=== PATIENT | male | born 1975 | race Caucasian/White ===

== ENCOUNTER 2018-06-24 08:25 | Inpatient (IN) | payer OTHER ==
[2018-06-24] VITALS (17 sets, daily range): BP systolic 123–148; BP diastolic 74–101
[~2018-06-24] VITALS: Ht 152.4 cm; Wt 91.8 kg
--- NOTE | ~2018-06-24 | CON ---
[address] [address] CONSULTATION Name: DELMISCHRISTINE WEBER Room: [address] Giancarlo Garcia#: [id number] Admission: 06/24/18 Attend Phys: Ishmael Jean Baptiste MD Discharge: Date of : 73 Report #: [id number] THIS REPORT FOR: //name// CC: Ishmael Jean Baptiste [facility] physician/PCP Aidan Jara DATE OF SERVICE: 06/24/2018 HISTORY OF PRESENT ILLNESS: The patient is a very pleasant 42-year-old male with aggressive and premature coronary artery disease, approximately 6 or 7 years status post multivessel stenting in [facility]. For the last several days, he has noted exertional chest heaviness or pressure, which remits with cessation of activity. He has also had nocturnal discomfort of similar nature for the preceding 3 nights remitting after he got up and walked around. He has not utilized nitrates. This is similar to pain associated with prior ischemic syndromes. He has underlying hypertension and hypercholesterolemia. He has not been particularly compliant with medications, but did resume his pravastatin at 20 mg and lisinopril at 5 mg daily. He also has a significant cigarette smoking history, estimated at 1 pack per day. He denies a family history of premature coronary disease, renal insufficiency, peripheral vascular disease or diabetes. PAST MEDICAL HISTORY: Remarkable for hypertension, hypercholesterolemia, coronary artery disease. SOCIAL HISTORY: The patient smokes approximately a pack per day and has for several years. He is . REVIEW OF SYSTEMS: Remarkable for the following, notes some mild weight excess. MUSCULOSKELETAL: There are mild chronic arthritic complaints. PHYSICAL EXAMINATION: GENERAL: Demonstrates a young adult male who is modestly overweight. VITAL SIGNS: Blood pressure is 130/70, pulse rate is 64, respirations are 18 per minute. NECK: Jugular venous pressure is normal with carotids being 1-2+. CHEST: Clear. CARDIAC: Reveals normal first and second heart sounds without rubs, [place] [address] CONSULTATION Name: CHRISTINE BENITES Room: [address] M.R.#: [id number] Admission: 06/24/18 Attend Phys: Ishmael Jean Baptiste MD Discharge: Date of : 73 Report #: [id number] ABDOMEN: Modestly obese and nontender. EXTREMITIES: Without edema with intact femoral, pedal and radial pulses. Electrocardiogram demonstrates sinus rhythm with no ischemic ST-T alterations. Troponin is elevated at 2.3. Renal function parameters are normal as are electrolytes, hemoglobin, hematocrit and white blood cell count as well as platelets. Coagulation times are within normal limits. IMPRESSION: 1. Chest pain following a pattern most compatible with unstable angina. 2. Coronary artery disease, status post prior multivessel intervention. 3. Hypertension. 4. Hypercholesterolemia. 5. Mild weight excess. RECOMMENDATIONS: Given the aforementioned clinical scenario, I would recommend heparinization, antiplatelet therapy and urgent catheterization. This has been discussed with the patient and family. Critical care time is 30 minutes from 09:00-09:30 on 06/24/2018. By: 0931 0113Aidan Jara MD, FACC /nt
[~2018-06-24 08:25] MED LIST: CLONAZEPAM 0.50.5 M1 PO
[2018-06-24] MEDS ORDERED: LISINOPRIL5 MG PO (08:35)
[2018-06-24] MEDS ORDERED: PRAVACHOL20 MG PO (08:35)
[2018-06-24 08:49] LABS: ABSOLUTE BASOPHILS 0.1 thou/uL (0.0-0.2); ABSOLUTE EOSINOPHILS 0.1 thou/uL (0.0-0.7); ABSOLUTE LYMPHOCYTES 1.7 thou/uL (0.8-5.3); ABSOLUTE MONOCYTES 0.6 thou/uL (0.0-1.2); ABSOLUTE NEUTROPHILS 4.9 thou/uL (1.6-8.1); BASOPHILS 0.8 %; EOSINOPHILS 1.9 %; HEMATOCRIT 47.7 % (42.0-52.0); HEMOGLOBIN 16.7 gm/dL (14.0-18.0); LYMPHOCYTES 23.4 %; MCH 33.1 pg (26.0-34.0); MCHC 35.1 g/dL (28.0-37.0); MCV 94.2 fL (80.0-100.0); MONOCYTES 7.6 %; MPV 9.1 fl. (7.2-11.1); NUCLEATED RBCS 0 /100WBC; PLATELET COUNT* 204 thou/uL (150-400); POLYS 66.3 %; RBC 5.06 mil/uL (4.50-6.00); RDW-CV 13.8 % (10.5-14.5); WBC 7.4 thou/uL (4.0-11.0)
[2018-06-24 08:59] LABS: INR 1.1; PROTIME 10.9 Seconds (9.20-11.50)
[2018-06-24 09:09] LABS: CALCIUM 9.3 mg/dL (8.5-10.1); CREATININE 0.8 mg/dL (0.6-1.3); POTASSIUM 4.1 mmol/L (3.5-5.1); TROPONIN-I LEVEL 2.3 ng/mL (<0.06)
[2018-06-24 09:10] LABS: ALBUMIN 3.7 g/dL (3.4-5.0); TOTAL PROTEIN 8.3 g/dL (6.4-8.2)
--- NOTE | 2018-06-24 10:11 | NUR ---
HEPARIN BOLUS AND DRIP STARTED WITH ALLISON RN, TELLY RN, JAZZ Ruby RN. WHEN ATTEMPTING TO SCAN PATIENT TO ADMINISTER MEDICATIONS, SCAN RESULTED ERROR "UNNECESSARY TO SCAN PATIENT". DOUBLE CHECKED ERROR WITH PHARMACY, AND GAME SHOW HOST. MEDICATIONS ADMINISTERED WITH 3 RNS.
--- NOTE | 2018-06-24 11:04 | NUR ---
REBECCA NOTIFIED UPON PT RETURN FROM CT. PT CONNECTED TO BP AND PULSE OX AND O2 HE WAS PRIOR TO GOING TO CT
[2018-06-24 13:04] LABS: CHOLESTEROL 382 mg/dL (<200); HDL CHOLESTEROL 66 mg/dL (>40); LDL CHOLESTEROL 292 mg/dL (<100); TC:HDL 5.8 Ratio (Not establshd); TRIGLYCERIDE 120 mg/dL (<150); VLDL 24 mg/dL (<40)
[2018-06-24 13:05] LABS: SERUM ASSESSMENT Clear
--- NOTE | 2018-06-24 16:38 | CARD ---
[address] [address] CARDIAC CATH REPORT Name: CHRISTINE BENITES Room: [address] M.R.#: [id number] Admission: 06/24/18 Attend Phys: Ishmael Jean Baptiste MD Discharge: Date of : 73 Report #: [id number] THIS REPORT FOR: //name// APPROVED REPORT Study performed: 06/24/2018 13:13:01 Patient Details Patient Status: Observation Room #: The patient is a 42 year-old male Event Personnel Aidan Jara Third Steel Pourer, Amy Colvin RN Cabinetmaker Apprentice, Kiet CarrenoIS Monitor, Brigido Vega (R) Scrub Procedures Performed Left Heart Cath w/or w/o Coronaries [id number] [facility] ANNALEE Place w/wo Plasty Single LAD [id number] ANNALEE Place w/wo Plasty Addl BR OM 1 C9601 DESADDL , Right transradial approach Indication Non-STEMI Risk Factors Family History, Hypercholesterolemia, Tobacco History () Admission/Lab Medications/Medications given during procedure Fentanyl IV 50 mcg, Midazolam (Versed) IV 2 mg, Lidocaine Subcut 15 ml, Midazolam (Versed) IV 1 mg, Nitroglycerin IC 200 mcg, Angiomax IV 13.5 mg per kg, Angiomax Drip IV 32.1 ml per hr Procedure Narrative The patient was brought electively to the Cardiac Catheterization Laboratory and was prepped and draped in a sterile manner. The right femoral was infiltrated with 2% Lidocaine subcutaneous anesthesia. A [place] 6fr sheath was inserted into the . Coronary angiography was performed using coronary diagnostic catheters. The right coronary system was accessed and visualized with a JR4 catheter. The left coronary system was accessed and visualized with a JL4 catheter. The left ventricle was accessed and visualized with a Straight PIG catheter. Left ventricular/Aortic Valve gradient assessed via catheter pullback. Left ventriculogram was performed in [place] projection. Pre-demployment femoral angiogram was performed . Closure device was deployed with a Fr Angioseal STS 6[place] [address] CARDIAC CATH REPORT Name: CHRISTINE BENITES Room: [address]#: [id number] Admission: 06/24/18 Attend Phys: Ishmael Jean Baptiste MD Discharge: Date of : 73 Report #: [id number] tolerated the procedure well and there were no complications associated with the procedure. There was no hematoma. Intraoperative Conscious Sedation Fentanyl 75 mcg Dose: 2850 mGy Contrast Type and Amount: Visipaque 580 ml Coronary Angiography The patient's coronary anatomy is co- dominant. Diagnostic Cath Left Main 0% narrowing LAD 40% tubular proximal narrowing and 90% mid vessel stenosis Circumflex 40% proximal narrowing with 60% distal narrowing; there was 90% stenosis of the proximal portion of the first marginal branch of the circumflex Right Coronary Modest size codominant vessel which is totally occluded proximally with recanalization and collateral filling from a conus branch of a skeleton of the distal right coronary artery Left Ventriculography The left ventricle is normal in size with contractility. The left ventricular ejection fraction is estimated to be 45%. Left ventricular wall motion abnormalities are present. There is mild anterior and moderate mid inferior hypokinesis Hemodynamics The aortic pressure is 128/56 mmHg with a mean of 81 mmHg. The left ventricular pressure is 131/7 mmHg with a mean of mmHg. The left ventricular end diastolic pressure is 23 mmHg. There was no gradient across the aortic valve upon pullback. PCI Technique Lesion Anticoagulation was achieved with Angiomax. Patient was preloaded with Angiomax IV 13.5 mg per kg. Percutaneous coronary intervention was performed on the mid left anterior descending artery segment. The lesion stenosis prior to intervention was 90% with MARYELLEN 3 flow. A 6FR XB 3.0 100CM Guide Catheter was used to engage the ostium. A IG: BMW 190cm Interventional Guidewire was used to cross the lesion. BALLOON DILATION A Balloon catheter Trek RX 2.5 X 12 was inserted and inflated up to 10.00atm [place] 7[place]. [place] [address] CARDIAC CATH REPORT Name: CHRISTINE BENITES Room: [address] M.R.#: [id number] Admission: 06/24/18 Attend Phys: Ishmael Jean Baptiste MD Discharge: Date of : 73 Report #: [id number] STENT DEPLOYMENT A stent Mark RX Stent 2.5X12mm was inserted and inflated up to 12.00atm for 8seconds. POST STENT DEPLOYMENT BALLOON DILATION A Balloon catheter NC Trek RX 2.0 X 12 was inserted and inflated up to 12.00atm for 8seconds. Final angiography reveals 0 % stenosis with MARYELLEN 3 flow. PCI Technique Lesion 2 Percutaneous Coronary Intervention was performed on the first obtuse marginal branch segment. The lesion stenosis prior to intervention was 90% with MARYELLEN 3 flow. Balloon Dilation A Balloon catheter NC Trek RX 2.0 X 12 was inserted and inflated up to 16atm for 15seconds. Stent Deployment A stent Mark RX Stent 2.0X15mm was inserted and inflated up to 20.00atm for 10seconds. Final angiography reveals 0 % stenosis with MARYELLEN 3 flow. Conclusion #1 severe multivessel coronary artery disease characterized by the following: A 40% proximal LAD narrowing with 90% mid vessel stenosis B nondominant circumflex with 40% proximal narrowing and and 60% distal narrowing with 90% stenosis within a previously deployed stent in the first marginal branch C modest size codominant right coronary artery which is totally occluded proximally with recanalization and conus filling of a skeleton of the distal right coronary artery #2 modest reduction in global left ventricular systolic function estimated ejection fraction of 45% with mild anterior and moderate inferior hypokinesis #3 moderate elevation of left ventricular [place] [address] CARDIAC CATH REPORT Name: CHRISTINE BENITES Room: [address] Giancarlo Garcia#: [id number] Admission: 06/24/18 Attend Phys: Ishmael Jean Baptiste MD Discharge: Date of : 73 Report #: [id number] rest #4 successful percutaneous coronary intervention with deployment drug-eluting stents at the sites of 90% mid LAD and 90% first marginal stenosis with 0% residual narrowing at both sites following stent deployment Recommendations Cardiac Risk Reduction Program Aggressive Medical Therapy Medications Administered Aspirin (any) Prasugrel Diagnostic Cath Approved by: Aidan Jara MD Date/Time: 06/24/2018 16:35:38 <ELECTRONICALLY SIGNED> By: Aidan Jara MD, [facility] 06/24/18 1637 1637 1637Aidan Jara MD, FAC /INF
--- NOTE | 2018-06-24 19:04 | NUR ---
post cath vs documented. pt started bleeding from the r groin. but pt r groin is now intact. ivf infusing.
--- NOTE | 2018-06-24 19:24 | NUR ---
THIS NURSE WALKED INTO THE PATIENT'S ROOM. PT BLEEDING FROM R GROIN. DRESING SATURATED.DRESSING WAS CHANGED BY THIS NURSE PRIOR TO LEAVING. DRESSING LOOKING INTACT NOW.REPORT GIVEN TO INSTRUMENT AND CONTROL SERVICE PERSON NURSE
[2018-06-25 00:22] VITALS: BP 110/71
[2018-06-25 04:17] VITALS: BP 99/75
[2018-06-25 05:00] LABS: HEMATOCRIT 43.4 % (42.0-52.0); MCH 32.4 pg (26.0-34.0); MCHC 33.8 g/dL (28.0-37.0); MCV 95.7 fL (80.0-100.0); MPV 9.3 fl. (7.2-11.1); RBC 4.54 mil/uL (4.50-6.00); RDW-CV 13.9 % (10.5-14.5); WBC 8.1 thou/uL (4.0-11.0)
--- NOTE | 2018-06-25 05:12 | NUR ---
ASSUMED PT CARE AT 1930. NURSING ASSESSMENT COMPLETED AT START OF SHIFT. SR ON PALLIATIVE CARE COORDINATOR.AT 2029, RIGHT GROIN DRESSING SATURATED WITH SEROSANGUINEOUS DRAINAGE FROM CATH SITE. DRESSING CHANGED, APPLIED PRESSURE TO SITE FOR 10 MINUTES. RECHECKED DRESSING THROUGHOUT SHIFT, DRESSING CDI AT THIS TIME. HOURLY ROUNDING COMPLETED. CALL LIGHT WITHIN REACH. VOICED NO CONCERNS THIS SHIFT.
[2018-06-25 05:25] LABS: CALCIUM 8.5 mg/dL (8.5-10.1); CREATININE 0.9 mg/dL (0.6-1.3); MAGNESIUM 1.8 mg/dL (1.8-2.4); POTASSIUM 4.1 mmol/L (3.5-5.1); TOTAL BILIRUBIN 0.8 mg/dL (<0.1-1.0)
[2018-06-25 05:36] LABS: HEMOGLOBIN 14.7 gm/dL (14.0-18.0)
[2018-06-25 06:05] LABS: TROPONIN-I LEVEL 5.96 ng/mL (<0.06)
[2018-06-25 08:00] VITALS: BP 112/75
--- NOTE | 2018-06-25 10:43 | NUR ---
assumed pt care report received from nurse. pt is aox4 sr on youth nutritional monitor. pt vs are within normal limits. morning meds given as ordered. pt awaiting for discharge. r groin site looks intact. will await for dr mckinney
[2018-06-25] MEDS ORDERED: EFFIENT10 MG PO (11:07)
[2018-06-25] MEDS ORDERED: ASPIR 8181 MG PO (11:07)
[2018-06-25] MEDS ORDERED: ATORVASTATIN CA40 MG PO (11:08)
[2018-06-25 11:27] VITALS: BP 141/99
[2018-06-25 11:34] VITALS: BP 141/99
[2018-06-25] MEDS ORDERED: NITROGLYCERIN0.4 MG SUBLING (11:42)
[2018-06-25 12:05] VITALS: BP 141/99
--- NOTE | 2018-06-25 12:05 | NUR ---
PT LEFT FLOOR AT 1200 ACOMPANIED BY NURSING STAFF AND FAMILY. DISCHARGE INSTRUCTIONS GIVEN.
--- NOTE | 2018-06-25 12:28 | EKG ---
[place] [address] ELECTROCARDIOGRAM REPORT Name: CHRISTINE BENITES Room: [address] IN M.R.#: [id number] Admission: 06/25/18 Attend Phys: Ishmael Jean Baptiste MD Discharge: 06/25/18 Date of : 73 Report #: [id number] THIS REPORT FOR: //name// [facility] ED Test Date: 2018-06-24 Test Time: 08:31:18 Pat Name: CHRISTINE BENITES Department: Room: [facility] Gender: M Case Management Rn: Alannah : 1975 Requested By: Jayce Clarke Order Number: [id number] MD: Lars Wilson Measurements Intervals [place] Rate: 97 P: 50 SC: 133 QRS: 53 QRSD: 98 T: 53 QT: 332 QTc: 422 Interpretive Statements Sinus rhythm No previous ECG available for comparison Electronically Signed On 06-25-2018 12:28:29 CDT by Lars Wilson [email or web address] <ELECTRONICALLY SIGNED> By: Lars Wilson MD, [facility] 06/25/18 1228 0 0 Lars Wilson MD, [facility] /EPI
--- NOTE | 2018-06-25 12:30 | EKG ---
[place] [address] ELECTROCARDIOGRAM REPORT Name: CHRISTINE BENITES Room: [address] IN M.R.#: [id number] Admission: 06/25/18 Attend Phys: Ishmael Jean Baptiste MD Discharge: 06/25/18 Date of : 73 Report #: [id number] THIS REPORT FOR: //name// [facility] Test Date: 2018-06-24 Test Time: 15:18:01 Pat Name: CHRISTINE BENITES Department: Room: [facility] Gender: M Center Sales And Service Associate: : 1975 Requested By: Aidan Jara Order Number: [id number] Clayton MD: Lars Wilson Measurements Intervals [place] Rate: 75 P: -4 IA: 118 QRS: 74 QRSD: 109 T: 63 QT: 368 QTc: 411 Interpretive Statements Sinus rhythm Borderline short IA interval Baseline wander in lead(s) V2 No previous ECG available for comparison Electronically Signed On 06-25-2018 12:30:16 CDT by Lars Wilson [email or web address] <ELECTRONICALLY SIGNED> By: Lars Wilson MD, FAC 06/25/18 1230 1518 1518 Lars Wilson MD, [facility] /EPI
--- NOTE | 2018-06-25 12:31 | EKG ---
[place] [address] ELECTROCARDIOGRAM REPORT Name: CHRISTINE BENITES Room: [address] [place] IN M.R.#: [id number] Admission: 06/25/18 Attend Phys: Ishmael Jean Baptiste MD Discharge: 06/25/18 Date of : 73 Report #: [id number] THIS REPORT FOR: //name// [facility] Test Date: 2018-06-24 Test Time: 17:35:59 Pat Name: CHRISTINE BENITES Department: Room: [address] Gender: M [employer] Consultant: : 1975 Requested By: Aidan Jara Order Number: [id number] Clayton MD: Lars Wilson Measurements Intervals [place] Rate: 91 P: 55 [place]: 150 QRS: 80 QRSD: 108 T: 54 QT: 356 QTc: 439 Interpretive Statements Sinus rhythm Probable left atrial enlargement Abnormal inferior Q waves Baseline wander in lead(s) II No previous ECG available for comparison Electronically Signed On 06-25-2018 12:31:20 CDT by Lars Wilson [email or web address] <ELECTRONICALLY SIGNED> By: Lars Wilson MD, FAC 06/25/18 1231 1735 1735 Lars Wilson MD, [facility] /EPI
--- NOTE | 2018-06-25 12:32 | EKG ---
[place] [address] ELECTROCARDIOGRAM REPORT Name: CHRISTINE BENITES Room: [address] IN M.R.#: [id number] Admission: 06/25/18 Attend Phys: Ishmael Jean Baptiste MD Discharge: 06/25/18 Date of : 73 Report #: [id number] THIS REPORT FOR: //name// [facility] Test Date: 2018-06-25 Test Time: 06:16:24 Pat Name: CHRISTINE BENITES Department: Room: [facility] Gender: M Canvas Cutter Machine: ROBINSON : 1975 Requested By: Aidan Jara Order Number: [id number] Reading MD: Lars Wilson Measurements Intervals [place] Rate: 88 P: -14 UT: 126 QRS: 80 QRSD: 105 T: 60 QT: 345 QTc: 418 Interpretive Statements Sinus rhythm Abnormal inferior Q waves No previous ECG available for comparison Electronically Signed On 06-25-2018 12:32:29 CDT by Lars Wilson [email or web address] <ELECTRONICALLY SIGNED> By: Lars Wilson MD, [facility] 06/25/18 1232 5 5 Lars Wilson MD, [facility] /EPI
== END 2018-06-25 12:03 | disposition home or self-care (01) | DRG 247 ==
LOC: M.CL 08:25 → M.ERS 08:25 → M.TBA-CV 09:35 → M.CL 09:35 → M.2W 16:33
PROVIDERS: Emergency Medicine; Internal Medicine; ADMIT Internal Medicine
PROC: B211YZZ Fluoroscopy of Multiple Coronary Arteries using Other Contrast (ICD-10-PCS; principal; 2018-06-24)
PROC: 4A023N7 Measurement of Cardiac Sampling and Pressure, Left Heart, Percutaneous Approach (ICD-10-PCS; principal; 2018-06-24)
PROC: B41JYZZ Fluoroscopy of Other Lower Arteries using Other Contrast (ICD-10-PCS; principal; 2018-06-24)
PROC: B215YZZ Fluoroscopy of Left Heart using Other Contrast (ICD-10-PCS; principal; 2018-06-24)
PROC: 027135Z Dilation of Coronary Artery, Two Arteries with Two Drug-eluting Intraluminal Devices, Percutaneous Approach (ICD-10-PCS; principal; 2018-06-24)
DX: I21.4 Non-ST elevation (NSTEMI) myocardial infarction (principal); I10 Essential (primary) hypertension; E78.00 Pure hypercholesterolemia, unspecified; F17.210 Nicotine dependence, cigarettes, uncomplicated; I25.110 Atherosclerotic heart disease of native coronary artery with unstable angina pectoris; E78.5 Hyperlipidemia, unspecified; Z79.82 Long term (current) use of aspirin; I25.2 Old myocardial infarction; Z95.5 Presence of coronary angioplasty implant and graft; Z91.19 Patient's noncompliance with other medical treatment and regimen; Z79.899 Other long term (current) drug therapy

== ENCOUNTER 2019-04-20 18:55 | Emergency (ER) | payer OTHER ==
[~2019-04-20] VITALS: Ht 170.2 cm; Wt 90.7 kg
[~2019-04-20 18:55] MED LIST changes: +ASPIR 8181 MG PO; +ATORVASTATIN CA40 MG PO; +EFFIENT10 MG PO; +LISINOPRIL5 MG PO; +NITROGLYCERIN0.4 MG SUBLING; +PRAVACHOL20 MG PO
[2019-04-20 19:03] VITALS: BP 157/89
[2019-04-20] MEDS ORDERED: CLINDAMYCIN HC150 MG PO (19:26)
[2019-04-20] MEDS ORDERED: HYDROCODON-ACE1 EAC8 PO (19:26)
== END 2019-04-20 19:34 | disposition home or self-care (01) ==
LOC: M.ERS 18:55
DX: K04.7 Periapical abscess without sinus (principal); I10 Essential (primary) hypertension; E78.00 Pure hypercholesterolemia, unspecified; I25.10 Atherosclerotic heart disease of native coronary artery without angina pectoris

== ENCOUNTER 2019-12-11 15:23 | Emergency (ER) | payer OTHER ==
[~2019-12-11] VITALS: Ht 170.2 cm; Wt 90.7 kg
[~2019-12-11 15:23] MED LIST changes: +CLINDAMYCIN HC150 MG PO; +HYDROCODON-ACE1 EAC8 PO
[2019-12-11] MEDS ORDERED: PRAVACHOL20 MG PO (15:40)
[2019-12-11] MEDS ORDERED: KEFLEX500 M2 PO (18:54)
[2019-12-11 19:44] VITALS: BP 167/90
== END 2019-12-11 19:45 | disposition home or self-care (01) ==
LOC: M.ERS 15:23
DX: S60.222A Contusion of left hand, initial encounter (principal); S83.91XA Sprain of unspecified site of right knee, initial encounter; I25.2 Old myocardial infarction; I10 Essential (primary) hypertension; E78.00 Pure hypercholesterolemia, unspecified; Z79.899 Other long term (current) drug therapy; V86.99XA Unspecified occupant of other special all-terrain or other off-road motor vehicle injured in nontraffic accident, initial encounter; Y93.89 Activity, other specified; Y92.89 Other specified places as the place of occurrence of the external cause; Y99.8 Other external cause status